=== PATIENT | male | born 1970 | race African-American/Black ===

== ENCOUNTER 2017-02-07 03:18 | Emergency (ER) | payer MEDICAID ==
[~2017-02-07] VITALS: Ht 180.3 cm; Wt 93.0 kg
[2017-02-07] MEDS ORDERED: KETOROLAC 30 MG/1 ML ONE (03:48)
[2017-02-07] MEDS ORDERED: KETOROLAC 30 MG/1 ML IM ONE (04:00)
[2017-02-07 04:23] VITALS: BP 135/78
== END 2017-02-07 04:27 | disposition home or self-care (01) ==
LOC: ED 04:00
DX: G89.29 Other chronic pain (principal); M54.5 Low back pain; M54.6 Pain in thoracic spine; M19.90 Unspecified osteoarthritis, unspecified site
CPT/HCPCS: 96372; 99283; J1885